=== PATIENT | male | born 1965 | race Hispanic/Latino ===

== ENCOUNTER 2017-08-18 16:42 | Emergency (ER) | payer OTHER ==
[~2017-08-18] VITALS: Ht 162.6 cm; Wt 59.1 kg
[~2017-08-18 16:42] MED LIST: TYLENOL500 MG OR
[2017-08-18] MEDS ORDERED: TORADOL PO (17:41)
[2017-08-18 17:42] VITALS: BP 140/102
== END 2017-08-18 17:42 | disposition home or self-care (01) | DRG 605 ==
LOC: ED 16:42
DX: S60.221A Contusion of right hand, initial encounter (principal); S60.511A Abrasion of right hand, initial encounter; V13.4XXA Pedal cycle driver injured in collision with car, pick-up truck or van in traffic accident, initial encounter; Y92.414 Local residential or business street as the place of occurrence of the external cause; Y93.55 Activity, bike riding